=== PATIENT | female | born 1990 | race Caucasian/White ===

== ENCOUNTER 2021-10-08 17:03 | Emergency (ER) | payer OTHER | END 2021-10-08 20:36 | disposition home or self-care (01) | LOC: ER1 17:03 | DX: M25.552 Pain in left hip (principal); R51.9 Headache, unspecified; F17.210 Nicotine dependence, cigarettes, uncomplicated; M54.50 Low back pain, unspecified; V49.9XXA Car occupant (driver) (passenger) injured in unspecified traffic accident, initial encounter | CPT/HCPCS: 70450; 71260; 72131; 73502; 81001; 84703; 99284; Q9967 ==

== ENCOUNTER → 2022-02-26 | Outpatient (CLI) | payer OTHER | LOC: KOH-I 13:30 | DX: R13.10 Dysphagia, unspecified (principal); R53.83 Other fatigue; R94.6 Abnormal results of thyroid function studies; Z83.49 Family history of other endocrine, nutritional and metabolic diseases | CPT/HCPCS: 76536 ==